=== PATIENT | female | born 1940 | race Caucasian/White ===

== ENCOUNTER 2019-07-16 17:30 | Inpatient (IN) | payer MEDICARE, BC ==
[~2019-07-16] VITALS: Ht 160 cm; Wt 61.4 kg
--- NOTE | 2019-07-16 17:52 | NUR ---
Dysphagia, with left temporal COTA and slight left labial fold droop Symptoms noticed since "YESTERDAY AT SOME TIME." b/p 227/[address]ABLE [address] ALVAREZ TO BEDSIDE TO EVALUATE- TO PERFORM EXPEDITED STROKE WORKUP WITHOUT CALLING CODE NEURO SYMPTOMS STARTED YESTERDAY
[2019-07-16 18:30] LABS: BASOPHILS # (AUTO) 0.04 x10^3/uL (0-0.1); BASOPHILS % (AUTO) 1 % (0-1); EOSINOPHILS # (AUTO) 0.16 x10^3/uL (0-0.4); EOSINOPHILS % (AUTO) 2 % (1-7); LYMPHOCYTES # (AUTO) 1.92 x10^3/uL (1-3.4); LYMPHOCYTES % (AUTO) 30 % (22-44); MD NO; MEAN CORPUSCULAR HEMOGLOBIN 30.8 pg (27.0-34.8); MEAN CORPUSCULAR HGB CONC 32.8 g/dL (32.4-35.8); MEAN CORPUSCULAR VOLUME 93.9 fL (80-100); MEAN PLATELET VOLUME 8.3 fL (7.4-10.4); MONOCYTES # (AUTO) 0.58 x10^3/uL (0.2-0.8); MONOCYTES % (AUTO) 9 % (2-9); NEUTROPHILS # (AUTO) 3.71 x10^3/uL (1.8-6.8); NEUTROPHILS % (AUTO) 58 % (42-75); PLATELET COUNT 330 x10^3/uL (130-400); RED BLOOD COUNT 4.42 x10^6/uL (3.82-5.3); RED CELL DISTRIBUTION WIDTH 13.1 % (9.6-15.2)
[2019-07-16] MEDS ORDERED: SODIUM CHLORIDE FLUSH 10ML SYR IVF ONE (18:30)
[2019-07-16 18:42] LABS: ALBUMIN 3.6 g/dL (3.4-5.0); ANION GAP 6 mmol/L (5-15); CALCIUM 9.3 mg/dL (8.5-10.1); CHLORIDE 108 mmol/L (98-107)
[2019-07-16 18:48] LABS: ALANINE AMINOTRANSFERASE 30 U/L (12-78); ALKALINE PHOSPHATASE 58 U/L (45-117); BILIRUBIN,TOTAL 0.4 mg/dL (0.2-1.0); CREATININE 0.89 mg/dL (0.55-1.02); TOTAL PROTEIN 7.2 g/dL (6.4-8.2); TROPONIN I < 0.015 ng/mL (0.000-0.045)
[2019-07-16] MEDS ORDERED: SODIUM CHLORIDE FLUSH 10ML SYR IVF PRN (20:00)
--- NOTE | 2019-07-16 21:47 | NUR ---
REPORT CALLED TO JULIO CRUZ. PT AND DAUGHTER UPDATED ON PLAN OF CARE, HOSPITALIST AT BEDSIDE AT THIS TIME. DENIES ANY NEEDS OR CONCERNS, CALL LIGHT IN REACH. PT NOW AWAITING TRANSPORT.
[2019-07-16 22:16] VITALS: BP 196/83
[2019-07-16] MEDS ORDERED: ONDANSETRON 2MG/ML, 2ML IVPush PRN (22:30)
[2019-07-16] MEDS ORDERED: ACETAMINOPHEN 650 MG/20.3 ML UDC PO PRN (22:30)
[2019-07-16] MEDS ORDERED: TRAZODONE 50MG TABLET PO PRN (22:30)
[2019-07-16] MEDS ORDERED: LABETALOL 5MG/ML, 20ML IV PRN (22:30)
[2019-07-16] MEDS: ATORVASTATIN 40 MG TABLET PO SCH (22:43)
[2019-07-16] MEDS ORDERED: OMNIPAQUE 350 MG/ML, 100ML BOTTLE ONE (23:22)
[2019-07-17 04:06] VITALS: BP 158/76
[2019-07-17 05:53] LABS: CHOL/HDL RATIO 2.4; LDL/HDL RATIO 1.2 (0.5-3.0)
[2019-07-17 06:48] VITALS: BP 172/76
[2019-07-17] MEDS: ASPIRIN 81 MG TABLET CHEW PO/NG SCH (07:44)
[2019-07-17 13:13] VITALS: BP 123/67
[2019-07-17 18:43] VITALS: BP 158/83
[2019-07-17] MEDS: ATORVASTATIN 40 MG TABLET PO SCH (20:36)
[2019-07-17 20:40] VITALS: BP 172/74
[2019-07-18] VITALS: BP 154/82
[2019-07-18 03:39] VITALS: BP 157/76
[2019-07-18 07:55] VITALS: BP 158/79
[2019-07-18] MEDS: ASPIRIN 81 MG TABLET CHEW PO/NG SCH (08:56)
[2019-07-18] MEDS ORDERED: ATOR40TA78 PO (09:58)
[2019-07-18] MEDS ORDERED: LISI-424 PO (09:58)
[2019-07-18] MEDS ORDERED: ASPI-515 PO/NG (09:58)
== END 2019-07-18 12:02 | disposition home or self-care (01) | DRG 65 ==
LOC: ED 18:23 → EDIP 22:19 → 4WST 22:20 → DCLOUNGE 07-18 11:51
PROVIDERS: ADMIT Family Medicine; ATTEND Family Medicine
DX: I63.511 Cerebral infarction due to unspecified occlusion or stenosis of right middle cerebral artery (principal); Q21.1 Atrial septal defect; R47.1 Dysarthria and anarthria; I16.0 Hypertensive urgency; I10 Essential (primary) hypertension; I35.1 Nonrheumatic aortic (valve) insufficiency; I65.21 Occlusion and stenosis of right carotid artery; R29.810 Facial weakness; Z96.659 Presence of unspecified artificial knee joint; G47.33 Obstructive sleep apnea (adult) (pediatric); Z79.899 Other long term (current) drug therapy
CPT/HCPCS: 36415; 70450; 70496; 70551; 71045; 80053; 80061; 84484; 85025; 93005; 93306; 93880; 99285; G0378; Q9967; 92523-GN

== ENCOUNTER 2019-07-22 09:26 | Observation (INO) | payer MEDICARE, BC ==
[~2019-07-22] VITALS: Ht 160 cm; Wt 76.5 kg
[~2019-07-22 09:26] MED LIST: ASPI-515 PO/NG; ATOR40TA78 PO; LISI-424 PO
[2019-07-22] MEDS ORDERED: MORPHINE SULFATE 4 MG/ML, 1ML ONE (10:59)
[2019-07-22] MEDS ORDERED: ONDANSETRON 2MG/ML, 2ML ONE (10:59)
[2019-07-22] MEDS ORDERED: SODIUM CHLORIDE FLUSH 10ML SYR IVF ONE (11:00)
[2019-07-22] MEDS ORDERED: ONDANSETRON 2MG/ML, 2ML IVPush ONE (11:00)
[2019-07-22] MEDS ORDERED: MORPHINE SULFATE 4 MG/ML, 1ML IVPush PRN (11:00)
[2019-07-22 11:35] LABS: MICROSCOPIC INDICATED
[2019-07-22 11:42] LABS: BASOPHILS # (AUTO) 0.05 x10^3/uL (0-0.1); BASOPHILS % (AUTO) 1 % (0-1); EOSINOPHILS # (AUTO) 0.08 x10^3/uL (0-0.4); EOSINOPHILS % (AUTO) 1 % (1-7); LYMPHOCYTES # (AUTO) 1.88 x10^3/uL (1-3.4); LYMPHOCYTES % (AUTO) 24 % (22-44); MD NO; MEAN CORPUSCULAR HGB CONC 32.7 g/dL (32.4-35.8); MEAN CORPUSCULAR VOLUME 94.9 fL (80-100); MEAN PLATELET VOLUME 8.6 fL (7.4-10.4); MONOCYTES # (AUTO) 0.59 x10^3/uL (0.2-0.8); MONOCYTES % (AUTO) 8 % (2-9); NEUTROPHILS # (AUTO) 5.19 x10^3/uL (1.8-6.8); NEUTROPHILS % (AUTO) 67 % (42-75); PLATELET COUNT 299 x10^3/uL (130-400); RED BLOOD COUNT 4.59 x10^6/uL (3.82-5.3); RED CELL DISTRIBUTION WIDTH 12.9 % (9.6-15.2)
[2019-07-22 11:46] LABS: ALANINE AMINOTRANSFERASE 30 U/L (12-78); ALBUMIN 3.8 g/dL (3.4-5.0); ANION GAP 9 mmol/L (5-15); CALCIUM 9.2 mg/dL (8.5-10.1); CHLORIDE 107 mmol/L (98-107); CREATININE 0.72 mg/dL (0.55-1.02)
[2019-07-22 11:50] LABS: ALKALINE PHOSPHATASE 59 U/L (45-117); BILIRUBIN,TOTAL 0.8 mg/dL (0.2-1.0); TOTAL PROTEIN 7.4 g/dL (6.4-8.2); TROPONIN I < 0.015 ng/mL (0.000-0.045)
[2019-07-22] MEDS ORDERED: GADOTERATE 7.5 MMOL/15 ML SYR ONE (12:13)
[2019-07-22] MEDS ORDERED: ACETAMINOPHEN 325 MG TABLET PO PRN (15:00)
[2019-07-22] MEDS ORDERED: hydrALAzine 20 MG/ML, 1ML IVPush PRN (15:00)
[2019-07-22] MEDS: HEPARIN 5,000 UNITS/ML, 1ML SQ SCH ×2 (15:00→22:04)
[2019-07-22] MEDS ORDERED: ONDANSETRON 2MG/ML, 2ML IVPush PRN (15:00)
[2019-07-22] MEDS ORDERED: LABETALOL 5MG/ML, 20ML IVPush PRN (15:00)
[2019-07-22 15:35] VITALS: BP 160/71
[2019-07-22 19:50] VITALS: BP 154/67
[2019-07-22] MEDS ORDERED: ATORVASTATIN 40 MG TABLET PO SCH (21:00)
[2019-07-22] MEDS: CEFDINIR 300 MG CAPSULE PO SCH (22:03)
[2019-07-23 02:19] VITALS: BP 145/73
[2019-07-23 06:49] VITALS: BP 113/67
[2019-07-23] MEDS ORDERED: CLOP75TA PO (08:50)
[2019-07-23] MEDS ORDERED: ACET325T26 PO (08:50)
[2019-07-23] MEDS ORDERED: CEFD300C37 PO (08:50)
[2019-07-23] MEDS ORDERED: LISI-167 PO (08:50)
[2019-07-23] MEDS: CEFDINIR 300 MG CAPSULE PO SCH (08:51)
[2019-07-23] MEDS: HEPARIN 5,000 UNITS/ML, 1ML SQ SCH (08:52)
[2019-07-23] MEDS ORDERED: CLOPIDOGREL 75 MG TABLET PO SCH (09:00)
[2019-07-23] MEDS ORDERED: ASPIRIN 81 MG TABLET EC PO SCH (09:00)
[2019-07-23] MEDS ORDERED: LISINOPRIL 10 MG TABLET PO SCH (09:00)
== END 2019-07-23 12:37 | disposition home or self-care (01) ==
LOC: ED 10:23 → EDIP 14:08 → INTOOBSV 14:08 → 4EST 15:10 → DCLOUNGE 07-23 12:25
PROVIDERS: ADMIT Hospitalist; ATTEND Internal Medicine
DX: R51 Headache (principal); I63.9 Cerebral infarction, unspecified; I10 Essential (primary) hypertension; E78.5 Hyperlipidemia, unspecified; D33.3 Benign neoplasm of cranial nerves; I65.21 Occlusion and stenosis of right carotid artery; Z86.73 Personal history of transient ischemic attack (TIA), and cerebral infarction without residual deficits; Z96.659 Presence of unspecified artificial knee joint; Z79.82 Long term (current) use of aspirin; Z79.899 Other long term (current) drug therapy
CPT/HCPCS: 36415; 70553; 71045; 80053; 81001; 83605; 84484; 85025; 87040; 87086; 92523; 93005; 96372; 96374; 96375; 96376; 97161; 97165; 99285; A9575; G0378; J1644; J2270; J2405

== ENCOUNTER 2020-01-11 12:15 | Emergency (ER) | payer MEDICARE, BC ==
[~2020-01-11] VITALS: Ht 160 cm; Wt 57.3 kg
[~2020-01-11 12:15] MED LIST changes: +ACET325T26 PO; +CEFD300C37 PO; +CLOP75TA PO; +LISI-167 PO
[2020-01-11 13:15] LABS: BASOPHILS % (AUTO) 1 % (0-1); EOSINOPHILS % (AUTO) 2 % (1-7); LYMPHOCYTES % (AUTO) 25 % (22-44); MEAN CORPUSCULAR HEMOGLOBIN 31.6 pg (27.0-34.8); MEAN CORPUSCULAR HGB CONC 33.7 g/dL (32.4-35.8); MEAN PLATELET VOLUME 8.6 fL (7.4-10.4); MONOCYTES % (AUTO) 10 % (2-9); NEUTROPHILS % (AUTO) 62 % (42-75); PLATELET COUNT 300 x10^3/uL (130-400); RED CELL DISTRIBUTION WIDTH 12.9 % (9.6-15.2)
[2020-01-11 13:16] LABS: MD NO
[2020-01-11 13:27] LABS: ALBUMIN 3.7 g/dL (3.4-5.0); ANION GAP 3 mmol/L (5-15); CALCIUM 9.1 mg/dL (8.5-10.1); CHLORIDE 110 mmol/L (98-107)
[2020-01-11 13:31] LABS: ALANINE AMINOTRANSFERASE 42 U/L (12-78); ALKALINE PHOSPHATASE 81 U/L (45-117); BILIRUBIN,TOTAL 0.4 mg/dL (0.2-1.0); CREATININE 0.76 mg/dL (0.55-1.02); TOTAL PROTEIN 7.2 g/dL (6.4-8.2)
--- NOTE | 2020-01-11 14:41 | NUR ---
pt bedded in room. vss,
--- NOTE | 2020-01-11 14:42 | NUR ---
PT TO ROOM FROM LOBBY
[2020-01-11 14:52] VITALS: BP 98/77
== END 2020-01-11 15:20 | disposition home or self-care (01) ==
LOC: ED 14:50
DX: R42 Dizziness and giddiness (principal); R06.02 Shortness of breath; I10 Essential (primary) hypertension; Z86.73 Personal history of transient ischemic attack (TIA), and cerebral infarction without residual deficits
CPT/HCPCS: 36415; 71045; 80053; 85025; 93005; 99285